=== PATIENT | male | born 1990 | race Caucasian/White ===

== ENCOUNTER 2025-06-15 12:15 | Emergency (ER) | payer SELFPAY ==
[~2025-06-15] VITALS: Ht 175.3 cm; Wt 78.0 kg
[2025-06-15 12:46] VITALS: O2SAT 98
[2025-06-15 13:12] LABS: BASOPHILS % 0.2 % (0.0-2.0); EOSINOPHILS % 0.4 % (0.0-5.0); HEMATOCRIT. 44.6 % (42.0-52.0); HEMOGLOBIN. 14.9 g/dL (14.0-18.0); LYMPHOCYTES % 19.5 % (20.0-50.0); MEAN PLATELET VOLUME 9.6 fl (7.4-10.4); MONOCYTES % 4.8 % (2.0-8.0); NEUTROPHILS % 75.1 % (40.0-76.0); PLATELET 209 x1000/uL (130-400); RED BLOOD CELL COUNT 5.25 mill/uL (4.7-6.1); RED CELL DISTRIBUTION WIDTH 14.1 % (11.6-14.6)
[2025-06-15 13:25] LABS: CREATININE 1.0 mg/dL (0.6-1.3); TROPONIN I HIGH SENSITIVITY < 4 ng/L (3.0-53); UREA NITROGEN BLOOD 6 mg/dL (9-23)
[2025-06-15 13:26] LABS: ETHANOL BLOOD < 10 mg/dL (<10)
[2025-06-15 13:27] LABS: ASPARTATE AMINOTRANSFERASE 17 IU/L (<34); BILIRUBIN DIRECT 0.1 mg/dL (<=3.0); BILIRUBIN TOTAL 0.5 mg/dL (0.1-1.0); PROTEIN TOTAL 7.8 g/dL (6.0-8.3)
[2025-06-15] MEDS ORDERED: FAMO-135 MT (13:45)
[2025-06-15] MEDS: FAMOTIDINE 20MG TABLET PO ONE (14:00)
[2025-06-15] MEDS: ONDANSETRON 4MG ODT PO ONE (14:00)
[2025-06-15] MEDS: MAGNESIUM/ALUMINUM HYDROXIDE/SIMETHICONE 30ML UDC PO ONE (14:00)
[2025-06-15 15:05] VITALS: BP 115/73; PULSE 70; RESP 18; TEMP 36.8; O2SAT 98
== END 2025-06-15 16:51 | disposition home or self-care (01) ==
LOC: ER 12:15
DX: K52.9 Noninfective gastroenteritis and colitis, unspecified (principal)
CPT/HCPCS: 80076; 80048; 80320; 83690; 85025; 84484; 36415; 74176; 93005; 99284; Q0162; G0480